=== PATIENT | female | born 1970 | race Caucasian/White ===

== ENCOUNTER 2021-06-25 05:30 | Day surgery (SDC) | payer BC ==
[~2021-06-25] VITALS: Ht 157.5 cm; Wt 102.1 kg
[2021-06-25] MEDS ORDERED: CEFAZOLIN SOD 1 GM in D5W 50 ML IV ONE (07:00)
[2021-06-25] MEDS ORDERED: LIDOCAINE 1%, 20 ML MDV 20 ML ONE (08:26)
[2021-06-25] MEDS ORDERED: PROPOFOL 200MG/ 20ML VIAL (DIPRIVAN) IV ONE (09:31)
[2021-06-25] MEDS ORDERED: KETOROLAC TROMETHAMINE 30 MG VIAL IVP ONE (09:31)
[2021-06-25] MEDS ORDERED: BUPIVACAINE /PF 0.25% 30 ML VIAL INJ ONE (09:31)
[2021-06-25] MEDS ORDERED: DEXAMETHASONE SOD PHOSPHATE 4 MG/ML VIAL IVP ONE (09:31)
[2021-06-25] MEDS ORDERED: ONDANSETRON HCL 4 MG/2 ML VIAL IVP ONE (09:31)
[2021-06-25] MEDS ORDERED: NS IRRIG SOLN 1000 ML IR ONE (09:31)
[2021-06-25] MEDS ORDERED: LR 1,000 ML IV.SOLN IV ONE (09:31)
[2021-06-25] MEDS ORDERED: SEVOFLURANE 15 MIN GAS INH ONE (09:31)
[2021-06-25] MEDS ORDERED: MIDAZOLAM HCL 5 MG/5 ML VIAL IVP ONE (09:31)
[2021-06-25] MEDS ORDERED: LIDOCAINE 2%, 20 ML MDV INJ ONE (09:31)
[2021-06-25] MEDS ORDERED: fentaNYL CITRATE 250 MCG/5 ML AMP IV ONE (09:31)
[2021-06-25] MEDS ORDERED: ACETAMINOPHEN I.V. 1000 MG 100 ML IV ONE (10:09)
[2021-06-25] MEDS ORDERED: LABETALOL 100 MG/ 20ML VIAL IVP PRN (10:30)
[2021-06-25] MEDS ORDERED: hydrALAZINE HCL 20 MG/ML VIAL IVP PRN (10:30)
[2021-06-25] MEDS ORDERED: LR 1,000 ML IV SCH (10:30)
[2021-06-25] MEDS ORDERED: HYDROmorphone 1 MG/ML INJ. CARTRIDGE IVP PRN ×2 (10:30)
[2021-06-25] MEDS ORDERED: MIDAZOLAM HCL 2 MG/2 ML VIAL (VERSED) IVP PRN (10:30)
[2021-06-25] MEDS ORDERED: MEPERIDINE HCL/PF 25 MG/ML DISP.SYRIN IVP PRN (10:30)
[2021-06-25] MEDS ORDERED: METOCLOPRAMIDE HCL 10 MG/2 ML VIAL IVP PRN (10:30)
[2021-06-25] MEDS ORDERED: D5/0.45 NS 1,000 ML IV SCH (11:00)
[2021-06-25] MEDS ORDERED: HYDROcodone/ACETAMIN 5-325 MG TAB (NORCO/ VICODIN) PO PRN ×2 (11:00)
[2021-06-25 15:17] VITALS: BP_SYST 114
== END 2021-06-25 12:55 | disposition home or self-care (01) ==
LOC: SDS 05:30 → SMU 05:30 → SDS 12:55 → SMU 13:36 → SDS 14:13
PROVIDERS: ATTEND Colon & Rectal Surgery
DX: N63.20 Unspecified lump in the left breast, unspecified quadrant (principal); D24.2 Benign neoplasm of left breast; Z90.710 Acquired absence of both cervix and uterus; Z79.899 Other long term (current) drug therapy; Z20.822 Contact with and (suspected) exposure to COVID-19
CPT/HCPCS: 0241U; 19281; 19301; 36415; 87426; 88307; J0131; J0690; J1100; J1885; J2001; J2250; J2405; J2704; J3010; J3490; J7060; J7120